=== PATIENT | female | born 1945 | race Caucasian/White ===

== ENCOUNTER 2017-09-05 11:01 | Outpatient (CLI) | payer OTHER | END 2017-09-05 11:04 | disposition home or self-care (01) | LOC: NUCLEAR 11:01 | DX: M81.0 Age-related osteoporosis without current pathological fracture (principal) ==

== ENCOUNTER → 2017-09-05 | Outpatient (CLI) | payer OTHER ==
[~2017-09-05] MED LIST: CATAFLAM50 MG PO; MEDROL4 MG PO
== END | disposition home or self-care (01) ==
LOC: MAMO-SONO 09:37
DX: N63.11 Unspecified lump in the right breast, upper outer quadrant (principal); N63.14 Unspecified lump in the right breast, lower inner quadrant; N85.01 Benign endometrial hyperplasia

== ENCOUNTER 2017-09-27 09:48 | Outpatient (CLI) | payer OTHER | END 2017-09-27 15:54 | disposition home or self-care (01) | LOC: RAD 09:48 | DX: M54.5 Low back pain (principal) ==

== ENCOUNTER 2018-09-15 10:24 | Emergency (ER) | payer OTHER ==
[~2018-09-15] VITALS: Ht 157.5 cm; Wt 89.8 kg
[2018-09-15] MEDS ORDERED: LOSARTAN POTASS50 MG (10:33)
[2018-09-15] MEDS ORDERED: SYNTHROID125 MCG (10:33)
== END 2018-09-15 16:08 | disposition home or self-care (01) ==
LOC: ER 10:24 → CPU-OBS 10:56 → ER 16:08
DX: R10.13 Epigastric pain (principal); R51 Headache

== ENCOUNTER → 2018-11-14 | Outpatient (CLI) | payer OTHER ==
[~2018-11-14] MED LIST changes: +LOSARTAN POTASS50 MG; +SYNTHROID125 MCG
== END | disposition home or self-care (01) ==
LOC: MAMO-SONO 14:15 → RAD 14:15
DX: Z12.31 Encounter for screening mammogram for malignant neoplasm of breast (principal); N64.4 Mastodynia; D25.9 Leiomyoma of uterus, unspecified; M54.2 Cervicalgia; M62.830 Muscle spasm of back; M54.6 Pain in thoracic spine; Z87.898 Personal history of other specified conditions

== ENCOUNTER 2020-03-03 09:46 | Outpatient (CLI) | payer OTHER | END 2020-03-03 09:52 | disposition home or self-care (01) | LOC: RAD 09:46 | PROVIDERS: ATTEND Obstetrics & Gynecology | DX: Z12.31 Encounter for screening mammogram for malignant neoplasm of breast (principal); S22.49XA Multiple fractures of ribs, unspecified side, initial encounter for closed fracture; N64.4 Mastodynia ==

== ENCOUNTER 2020-03-03 11:02 | Outpatient (CLI) | payer OTHER | END 2020-03-03 11:09 | disposition home or self-care (01) | LOC: NUCLEAR 11:02 | PROVIDERS: ATTEND Obstetrics & Gynecology | DX: M81.0 Age-related osteoporosis without current pathological fracture (principal); M85.80 Other specified disorders of bone density and structure, unspecified site ==

== ENCOUNTER 2021-04-28 11:07 | Outpatient (CLI) | payer OTHER | END 2021-04-28 11:08 | disposition home or self-care (01) | LOC: MAMO-SONO 11:07 | PROVIDERS: ATTEND Obstetrics & Gynecology | DX: N60.11 Diffuse cystic mastopathy of right breast (principal); N60.12 Diffuse cystic mastopathy of left breast; Z12.31 Encounter for screening mammogram for malignant neoplasm of breast ==

== ENCOUNTER 2022-08-16 09:38 | Outpatient (CLI) | payer OTHER | END 2022-08-16 09:40 | disposition home or self-care (01) | LOC: RAD 09:38 | PROVIDERS: ATTEND Obstetrics & Gynecology | DX: Z12.31 Encounter for screening mammogram for malignant neoplasm of breast (principal); N64.4 Mastodynia; M75.30 Calcific tendinitis of unspecified shoulder; M75.50 Bursitis of unspecified shoulder; M75.110 Incomplete rotator cuff tear or rupture of unspecified shoulder, not specified as traumatic; M19.019 Primary osteoarthritis, unspecified shoulder; M50.30 Other cervical disc degeneration, unspecified cervical region ==

== ENCOUNTER 2022-10-11 10:50 | Outpatient (CLI) | payer OTHER | END 2022-10-11 10:57 | disposition home or self-care (01) | LOC: SONOGRAMA 10:50 | PROVIDERS: ATTEND Physical Medicine & Rehabilitation | DX: E04.1 Nontoxic single thyroid nodule (principal); D34 Benign neoplasm of thyroid gland ==

== ENCOUNTER 2022-11-24 08:26 | Outpatient (CLI) | payer OTHER | END 2022-11-24 09:00 | disposition home or self-care (01) | LOC: SONOGRAMA 08:26 | PROVIDERS: ATTEND Pathology Anatomic Pathology & Clinical Pathology | DX: D44.0 Neoplasm of uncertain behavior of thyroid gland (principal); D34 Benign neoplasm of thyroid gland; E06.3 Autoimmune thyroiditis; E07.9 Disorder of thyroid, unspecified ==

== ENCOUNTER 2023-04-04 08:35 | Outpatient (CLI) | payer OTHER | END 2023-04-04 10:10 | disposition home or self-care (01) | LOC: SONOGRAMA 08:35 | PROVIDERS: ATTEND Internal Medicine | DX: E03.8 Other specified hypothyroidism (principal); I11.9 Hypertensive heart disease without heart failure; E55.9 Vitamin D deficiency, unspecified; E66.8 Other obesity; M96.1 Postlaminectomy syndrome, not elsewhere classified; D51.3 Other dietary vitamin B12 deficiency anemia ==

== ENCOUNTER 2024-10-15 11:43 | Outpatient (CLI) | payer OTHER ==
[~2024-10-15 11:43] MED LIST changes: +ATACAND32 MG; +GABAPENTIN100 M2 PO; +MEDROLPACK PO; +ZANAFLEX4 MG PO
== END 2024-10-15 11:44 | disposition home or self-care (01) ==
LOC: NUCLEAR 11:43
PROVIDERS: ATTEND Obstetrics & Gynecology
DX: M81.0 Age-related osteoporosis without current pathological fracture (principal); M85.80 Other specified disorders of bone density and structure, unspecified site

== ENCOUNTER 2024-10-15 14:55 | Outpatient (CLI) | payer OTHER | END 2024-10-15 15:01 | disposition home or self-care (01) | LOC: MAMO-SONO 14:55 | PROVIDERS: ATTEND Obstetrics & Gynecology | DX: N64.4 Mastodynia (principal); Z12.31 Encounter for screening mammogram for malignant neoplasm of breast; R10.2 Pelvic and perineal pain; R73.01 Impaired fasting glucose; D51.3 Other dietary vitamin B12 deficiency anemia; E03.8 Other specified hypothyroidism; E55.9 Vitamin D deficiency, unspecified; I11.9 Hypertensive heart disease without heart failure; M96.1 Postlaminectomy syndrome, not elsewhere classified; E66.89 Other obesity not elsewhere classified ==